=== PATIENT | male | born 1970 | race Caucasian/White ===

== ENCOUNTER → 2019-10-20 | Outpatient (CLI) | payer OTHER ==
--- NOTE | 2019-10-22 07:10 | ECHO ---
DATE OF STUDY: 10/20/2019 REFERRING PHYSICIAN: Dr. Otilio Awad INDICATION: Chest pain unspecified. HEIGHT: 6 feet 1 inches. WEIGHT: 270 pounds. 2-D MEASUREMENTS: Ventricular septum: 1.05 cm Posterior wall: 1.02 cm Left ventricle diastole: 5.6 cm LVOT: 2.2 cm Aortic root: 3.4 cm Left atrium: 4.3 cm Inferior vena cava: 1.4 cm DOPPLER MEASUREMENTS: No aortic regurgitation No mitral regurgitation No tricuspid regurgitation Trace pulmonic regurgitation Aortic valve velocity: 131 cm/sec LVOT velocity: 96.0 cm/sec Mitral E velocity: 53.1 cm/sec Mitral A velocity: 60.8 cm/sec Mitral deceleration time: 275 ms Pulmonary artery acceleration time: 134 ms MITRAL ANNULAR TISSUE DOPPLER: E prime septal: 7.4 cm/sec E prime lateral: 8.6 cm/sec DESCRIPTION: The rhythm was sinus. Image quality was adequate. This was a 2-D, M-mode, color flow Doppler and pulse wave Doppler examination and included mitral annular tissue Doppler. CONCLUSIONS: 1. Normal left ventricle internal dimensions and wall thickness. Normal regional LV wall motion and wall thickening. Normal LV systolic function. LVEF 60-65% by visual estimate. Grade 1 LV diastolic dysfunction. 2. No pericardial effusion. 3. Otherwise normal appearing echocardiogram Doppler findings.
== END ==
LOC: M CARPUL 08:52
PROVIDERS: ATTEND Internal Medicine
DX: R07.9 Chest pain, unspecified (principal)

== ENCOUNTER → 2021-05-01 | Outpatient (CLI) | payer MEDICARE ==
[~2021-05-01] MED LIST: ATOR1TAB21 PO; D31000TA2 PO; NAPR500T6 PO; TRIA37.53 PO
== END ==
LOC: M LABSMTC 11:08
PROVIDERS: ATTEND Anesthesiology
DX: Z01.812 Encounter for preprocedural laboratory examination (principal); Z11.52 Encounter for screening for COVID-19

== ENCOUNTER 2021-05-06 10:54 | Day surgery (SDC) | payer OTHER ==
[~2021-05-06] VITALS: Ht 188 cm; Wt 117.9 kg
[~2021-05-06 10:54] MED LIST changes: +NS 1,000 ML IV ONE
[2021-05-06] MEDS ORDERED: LIDOCAINE 2% 100MG/5ML SDV (FOR ANES.) As Ordered ONE (11:33)
[2021-05-06] MEDS ORDERED: propofoL 200 MG/20 ML VIAL As Ordered ONE (11:33)
--- NOTE | 2021-05-06 12:01 | ROOR ---
Patient Name: Matt Queen Procedure Date: 05/06/2021 11:35 AM Date of : 1970 Age: 50 Room: [facility] Gender: Male Note Status: Finalized Procedure: Total Colonoscopy to Cecum Indications: Screening for colorectal malignant neoplasm Providers: Cade Perez MD Referring MD: Olivia SUAREZ [facility] Olivia SUAREZ [facility], Admin. Requesting Provider: Medicines: Monitored Anesthesia Care Complications: No immediate complications. Procedure: Pre-Anesthesia Assessment: - The heart rate, respiratory rate, oxygen saturations, blood pressure, adequacy of pulmonary ventilation, and response to care were monitored throughout the procedure. The Colonoscope was introduced through the anus and advanced to the cecum, identified by appendiceal orifice and ileocecal valve. The colonoscopy was performed without difficulty. The patient tolerated the procedure well. The quality of the bowel preparation was excellent. Findings: The perianal and digital rectal examinations were normal. Non-bleeding internal hemorrhoids were found during retroflexion. The hemorrhoids were small and Grade I (internal hemorrhoids that do not prolapse). Scattered small-mouthed diverticula were found in the recto-sigmoid colon, sigmoid colon and descending colon. The exam was otherwise without abnormality on direct and retroflexion views. Impression: - Non-bleeding internal hemorrhoids. - Diverticulosis in the recto-sigmoid colon, in the sigmoid colon and in the descending colon. - The examination was otherwise normal on direct and retroflexion views. - No specimens collected. - The exam was otherwise normal to the cecum. Recommendation: - Patient has a contact number available for emergencies. The signs and symptoms of potential delayed complications were discussed with the patient. Return to normal activities tomorrow. Written discharge instructions were provided to the patient. - High fiber diet. - Discharge patient to home. - Continue present medications. - Repeat colonoscopy in 10 years for screening purposes. - Return to referring physician. - The findings and recommendations were discussed with the patient's family. Procedure Code(s): --- Professional --- 59774, Colonoscopy, flexible; diagnostic, including collection of specimen(s) by brushing or washing, when performed (separate procedure) Diagnosis Code(s): --- Professional --- Z12.11, Encounter for screening for malignant neoplasm of colon K64.0, First degree hemorrhoids K57.30, Diverticulosis of large intestine without perforation or abscess without bleeding CPT copyright 2019 [employer]. All rights reserved. The codes documented in this report are preliminary and upon workday manager review may be revised to meet current compliance requirements. Cade Perez MD Cade Perez MD 05/06/2021 12:01:09 PM Electronically signed by Cade Perez MD Number of Addenda: 0 Note Initiated On: 05/06/2021 11:35 AM Estimated Blood Loss: Estimated blood loss: none.
[2021-05-06 12:27] VITALS: BP 128/74
== END 2021-05-06 12:35 | disposition home or self-care (01) ==
LOC: M OPP 10:54
PROVIDERS: ATTEND Internal Medicine Gastroenterology
DX: Z12.11 Encounter for screening for malignant neoplasm of colon (principal); K57.30 Diverticulosis of large intestine without perforation or abscess without bleeding; K64.0 First degree hemorrhoids; Z79.899 Other long term (current) drug therapy